=== PATIENT | female | born 1995 | race African-American/Black ===

== ENCOUNTER 2022-08-25 00:31 | Emergency (ER) | payer MEDICAID, OTHER ==
[~2022-08-25] VITALS: Ht 157.5 cm; Wt 51.0 kg
[~2022-08-25 00:31] MED LIST: PRENATAL
[2022-08-25 00:43] VITALS: BP 142/78
[2022-08-25] MEDS ORDERED: KETOROLAC 30MG/ML VIAL IM ONE (01:15)
[2022-08-25] MEDS ORDERED: ACETAMINOPHEN 325MG TABLET PO ONE (01:15)
[2022-08-25] MEDS ORDERED: DIAZEPAM 5 MG TABLET PO ONE (01:15)
[2022-08-25] MEDS ORDERED: DIAZEPAM 5 MG TABLET PO NR (01:30)
== END 2022-08-25 01:45 | disposition home or self-care (01) ==
LOC: ER 00:31
DX: R51.9 Headache, unspecified (principal); H92.02 Otalgia, left ear; J45.909 Unspecified asthma, uncomplicated; Z88.0 Allergy status to penicillin
CPT/HCPCS: 99283